=== PATIENT | male | born 1975 | race Caucasian/White ===

== ENCOUNTER 2025-05-04 17:41 | Inpatient (IN) | payer OTHER ==
[~2025-05-04] VITALS: Ht 188 cm; Wt 104.5 kg
[2025-05-04] MEDS ORDERED: 0.9% SODIUM CHLORIDE 10 ML SYRINGE IVP PRN (19:00)
[2025-05-04] MEDS: SODIUM CHLORIDE 0.9% 1,000 ML IV ONE (19:33)
[2025-05-04] MEDS: PERTUSS(ACELL),DIPH,TET/PF 0.5 ML SYRINGE [ADULT] IM. ONE (19:42)
[2025-05-04] MEDS: KETOROLAC TROMETHAMINE 30 MG/ML VIAL IVP ONE (19:43)
[2025-05-04 19:52] LABS: PLATELET COUNT (AUTO) 264 K/uL (150-450); RED BLOOD CELL COUNT(AUTO) 4.25 MIL/uL (4.50-5.90); RED CELL DISTRIBUTION WIDTH 13.0 % (11.5-14.5); WHITE BLOOD COUNT (AUTO) 7.6 K/uL (4.5-11.0)
[2025-05-04 20:01] LABS: CALCIUM, TOTAL 8.7 mg/dL (8.8-10.5); CREATININE 0.58 mg/dL (0.60-1.30); GLOMERULAR FILTR. RATE CALC > 60 mL/min (>60); GLUCOSE,RANDOM 99 mg/dL (70-110); SODIUM SERUM 138 mmol/L (136-145); UREA NITROGEN, BLOOD 9 mg/dL (7-18)
[2025-05-04 20:10] LABS: LACTIC ACID 0.8 mmol/L (0.4-2.0)
[2025-05-04] MEDS: VANCOMYCIN 1.5 GM/WATER(PEG) 300 ML IV ONE (20:12)
[2025-05-04] MEDS ORDERED: MAGNESIUM HYDROXIDE SUSPENSION 30 ML UDCUP PO PRN (22:00)
[2025-05-04] MEDS ORDERED: ZOLPIDEM TARTRATE 5 MG TABLET PO PRN (22:00)
[2025-05-04] MEDS ORDERED: ONDANSETRON HCL 4 MG/2 ML VIAL IVP PRN (22:00)
[2025-05-04 22:47] VITALS: BP 128/89; PULSE 52; RESP 18; TEMP 97.7; O2SAT 98
[2025-05-04] MEDS: CefTRIAXone 1 GM/DEXTROSE 50 ML IV SCH (23:40)
[2025-05-05] MEDS: ACETAMINOPHEN 325 MG TABLET PO PRN (04:25)
[2025-05-05 05:09] VITALS: BP 138/99; PULSE 51; RESP 18; TEMP 98.1; O2SAT 99
[2025-05-05 08:48] VITALS: BP 139/96; PULSE 75; RESP 18; TEMP 97.9; O2SAT 95
[2025-05-05] MEDS ORDERED: SODIUM CHLORIDE 0.9% 500 ML IV ONE (08:52)
[2025-05-05] MEDS: DOCUSATE SODIUM 100 MG CAPSULE PO SCH (08:56)
[2025-05-05] MEDS: VANCOMYCIN 1.25 GM/WATER(PEG) 250 ML IV SCH (08:56)
[2025-05-05] MEDS: FAMOTIDINE 20 MG TABLET PO SCH (08:56)
[2025-05-05] MEDS: BUPRENORPHINE HCL/NALOXONE HCL 2-0.5 MG SUBLINGUAL TABLET SL SCH (13:57)
[2025-05-05] MEDS: PIPERACILLIN/TAZO 3.375 GM/D5W 50 ML IV SCH (14:46)
[2025-05-05] MEDS: OxyCODONE HCL/ACETAMINOPHEN 5-325 MG TABLET PO PRN (16:25)
[2025-05-05 17:47] LABS: CALCIUM, TOTAL 8.7 mg/dL (8.8-10.5); CREATININE 0.57 mg/dL (0.60-1.30); GLOMERULAR FILTR. RATE CALC > 60 mL/min (>60); GLUCOSE,RANDOM 98 mg/dL (70-110); SODIUM SERUM 140 mmol/L (136-145); UREA NITROGEN, BLOOD 7 mg/dL (7-18)
[2025-05-05 20:33] VITALS: BP 134/83; PULSE 73; RESP 18; TEMP 98.2; O2SAT 96
[2025-05-06 04:49] VITALS: BP 131/98; PULSE 60; RESP 18; TEMP 98.2; O2SAT 98
[2025-05-06 08:15] VITALS: BP 134/102; PULSE 65; RESP 18; TEMP 99.1; O2SAT 96
[2025-05-06 09:02] LABS: CALCIUM, TOTAL 8.7 mg/dL (8.8-10.5); CREATININE 0.60 mg/dL (0.60-1.30); GLOMERULAR FILTR. RATE CALC > 60 mL/min (>60); GLUCOSE,RANDOM 122 mg/dL (70-110); SODIUM SERUM 139 mmol/L (136-145); UREA NITROGEN, BLOOD 10 mg/dL (7-18)
[2025-05-06] MEDS: LOPERAMIDE HCL 2 MG CAPSULE PO PRN (11:41)
[2025-05-06 11:51] VITALS: BP 156/101
[2025-05-06] MEDS: CHLORHEXIDINE GLUCONATE 4% 118 ML TOPICAL LIQUID TP SCH (13:16)
[2025-05-06 20:09] VITALS: BP 121/83; PULSE 71; RESP 18; TEMP 99.3; O2SAT 97
[2025-05-06] MEDS ORDERED: CHLORHEXIDINE GLUCONATE 4% 118 ML TOPICAL LIQUID TP SCH (21:00)
[2025-05-07 05:09] VITALS: BP 113/86; PULSE 63; RESP 18; TEMP 98.6; O2SAT 98
[2025-05-07 07:08] LABS: CALCIUM, TOTAL 9.0 mg/dL (8.8-10.5); CREATININE 0.77 mg/dL (0.60-1.30); GLOMERULAR FILTR. RATE CALC > 60 mL/min (>60); GLUCOSE,RANDOM 104 mg/dL (70-110); SODIUM SERUM 139 mmol/L (136-145); UREA NITROGEN, BLOOD 10 mg/dL (7-18)
[2025-05-07 08:21] VITALS: BP 121/82; PULSE 67; RESP 18; TEMP 98.1; O2SAT 98
[2025-05-07] MEDS: OxyCODONE HCL/ACETAMINOPHEN 5-325 MG TABLET PO PRN (08:44)
[2025-05-07 15:54] LABS: PLATELET COUNT (AUTO) 339 K/uL (150-450); RED BLOOD CELL COUNT(AUTO) 4.97 MIL/uL (4.50-5.90); RED CELL DISTRIBUTION WIDTH 12.9 % (11.5-14.5); WHITE BLOOD COUNT (AUTO) 8.3 K/uL (4.5-11.0)
[2025-05-07 16:03] LABS: CALCIUM, TOTAL 9.0 mg/dL (8.8-10.5); CREATININE 0.72 mg/dL (0.60-1.30); GLOMERULAR FILTR. RATE CALC > 60 mL/min (>60); GLUCOSE,RANDOM 116 mg/dL (70-110); UREA NITROGEN, BLOOD 12 mg/dL (7-18)
[2025-05-07 16:06] LABS: SODIUM SERUM 138 mmol/L (136-145)
[2025-05-07] MEDS ORDERED: POTASSIUM CHL 10 MEQ/WATER 50 ML IV PRN (17:00)
[2025-05-07] MEDS: POTASSIUM CHLORIDE 20 MEQ ER TABLET PO PRN (17:08)
[2025-05-07 20:28] VITALS: BP 129/89; PULSE 78; RESP 18; TEMP 98.4; O2SAT 94
[2025-05-08 03:07] VITALS: BP 130/87; PULSE 60; RESP 18; TEMP 97.9; O2SAT 94
[2025-05-08 04:58] VITALS: BP 119/85; PULSE 82; RESP 18; O2SAT 96
[2025-05-08 06:06] LABS: CALCIUM, TOTAL 8.7 mg/dL (8.8-10.5); CREATININE 0.79 mg/dL (0.60-1.30); GLOMERULAR FILTR. RATE CALC > 60 mL/min (>60); GLUCOSE,RANDOM 105 mg/dL (70-110); SODIUM SERUM 141 mmol/L (136-145); UREA NITROGEN, BLOOD 9 mg/dL (7-18)
[2025-05-08 08:00] VITALS: BP 129/93; PULSE 65; RESP 20; TEMP 98.8; O2SAT 98
[2025-05-08] MEDS ORDERED: WATER FOR IRRIGATION,STERILE 1000 ML SOLUTION BOTTLE ONE (11:14)
[2025-05-08] MEDS: AMOX TR/POT CLAV 875 MG/125 MG TABLET PO SCH (11:27)
[2025-05-08 13:15] VITALS: BP 116/72; PULSE 99; RESP 20; TEMP 98.6; O2SAT 100
[2025-05-08 17:12] VITALS: BP 116/85; PULSE 86; RESP 20; TEMP 99; O2SAT 100
[2025-05-10] MEDS ORDERED: SULF1TAB94 PO (12:32)
[2025-05-10] MEDS ORDERED: CHLO3800 TP (12:36)
[2025-05-10] MEDS ORDERED: FAMO20 PO (12:37)
[2025-05-10] MEDS ORDERED: BUPR1TAB45 SL (12:38)
== END 2025-05-08 17:45 | DRG 603 ==
LOC: EMS 17:45 → EDH 21:54 → 6S 22:42
PROVIDERS: ADMIT Internal Medicine; ATTEND Internal Medicine
DX: L03.011 Cellulitis of right finger (principal); F11.20 Opioid dependence, uncomplicated; L02.511 Cutaneous abscess of right hand; R03.0 Elevated blood-pressure reading, without diagnosis of hypertension; G89.4 Chronic pain syndrome; R19.7 Diarrhea, unspecified
CPT/HCPCS: 71045; 80048; 80202; 83605; 84132; 84145; 85025; 85610; 85651; 86140; 87040; 87070; 87186; 87205; 90715; 93005; 96372; 96374; 99285; J0696; J1885; J2543; J7030; J7040; 36415-L1; 36415-TC